=== PATIENT | male | born 1960 | race Two or more races ===

== ENCOUNTER 2017-09-27 08:02 | Outpatient (CLI) | payer OTHER ==
[~2017-09-27 08:02] MED LIST: ACIDOPHILUS1 EAC2 PO; PREDNISONE20 MG PO; PROPECIA1 MG; SULFAMETHOXAZOL1 TA1 PO; ZYRTEC10 MG PO
== END 2017-09-27 08:12 | disposition home or self-care (01) ==
LOC: LAB 08:02
DX: E78.5 Hyperlipidemia, unspecified (principal)

== ENCOUNTER 2020-03-20 10:45 | Outpatient (CLI) | payer OTHER ==
[~2020-03-20] VITALS: Ht 182.9 cm; Wt 88.5 kg
== END 2020-03-20 18:03 | disposition home or self-care (01) ==
LOC: OFIC 805 10:45
PROVIDERS: ATTEND Otolaryngology
DX: H91.21 Sudden idiopathic hearing loss, right ear (principal); H93.8X1 Other specified disorders of right ear

== ENCOUNTER → 2020-03-21 08:00 | Outpatient (CLI) | payer OTHER | END | disposition home or self-care (01) | LOC: ADM 07:15 → LAB 08:00 → EDSTATUS 03-24 07:15 → CIR.AMB 03-24 07:15 | PROVIDERS: ATTEND Otolaryngology | DX: H91.20 Sudden idiopathic hearing loss, unspecified ear (principal) ==

== ENCOUNTER 2020-07-26 16:57 | Emergency (ER) | payer OTHER ==
[~2020-07-26] VITALS: Ht 182.9 cm; Wt 90.7 kg
== END 2020-07-26 17:45 | disposition home or self-care (01) ==
LOC: ER 16:57
DX: J04.0 Acute laryngitis (principal)